=== PATIENT | male | born 1985 | race Caucasian/White ===

== ENCOUNTER 2017-11-06 02:50 | Emergency (ER) | payer SELFPAY ==
[2017-11-06 02:59] VITALS: BP 179/105; PULSE 117; O2SAT 100
--- NOTE | 2017-11-06 03:08 | ERPHSYRPT ---
- History of Present Illness Time Seen by Provider: 11/06/17 03:00 Source: patient Exam Limitations: no limitations Patient Subjective Stated Complaint: pt was pulled over by law enforcement for dui. here for group home clearance Triage Nursing Assessment: pt awake and alert, asnwers questions approp. pt ambulatory with steady gait noted. respirations nonlabored with lungs cta. skin pink warm and dry Physician History: 32 y/o male with history of alcohol abuse brought in by police for DUI. Pt admits to drinking 7-8 beers this day. The officer mentions that his blood alcohol level was 0.3. The patient is steady on his feet and is coherent with no mental status changes. Pt has not fallen. Pt has no complaints and reports that he just wants to go home. Timing/Duration: today Associated Symptoms: denies symptoms Allergies/Adverse Reactions: No Known Drug Allergies Allergy (Verified 11/06/17 02:59) Home Medications: No Reportable Medications [No Reported Medications] 11/06/17 [History] Hx Tetanus, Diphtheria Vaccination/Date Given: Yes Hx Influenza Vaccination/Date Given: No Hx Pneumococcal Vaccination/Date Given: No Immunizations Up to Date: Yes - Review of Systems Constitutional: No Fever, No Chills Eyes: No Symptoms Ears, Nose, & Throat: No Symptoms Respiratory: No Cough, No Dyspnea Cardiac: No Chest Pain, No Edema, No Syncope Abdominal/Gastrointestinal: No Abdominal Pain, No Nausea, No Vomiting, No Diarrhea Genitourinary Symptoms: No Dysuria Musculoskeletal: No Back Pain, No Neck Pain Skin: No Rash Neurological: No Dizziness, No Focal Weakness, No Sensory Changes Psychological: No Symptoms Endocrine: No Symptoms All Other Systems: Reviewed and Negative - Past Medical History Pertinent Past Medical History: Yes GI Medical History: Hepatitis Psycho-Social History: Depression - Past Surgical History Past Surgical History: No - Social History Smoking Status: Current every day smoker Exposure to second hand smoke: Yes Drug Use: none Patient Lives Alone: No - Nursing Vital Signs Nursing Vital Signs: Initial Vital Signs Temperature 98.5 F 11/06/17 02:53 Pulse Rate 117 H 11/06/17 02:53 Respiratory Rate 20 11/06/17 02:53 Blood Pressure 179/105 11/06/17 02:53 O2 Sat by Pulse Oximetry 100 11/06/17 02:53 Pain Scale Pain Intensity 0 - Physical Exam General Appearance: no apparent distress, alert Eye Exam: PERRL/EOMI, eyes nml inspection Ears, Nose, Throat Exam: normal ENT inspection, TMs normal, pharynx normal, moist mucous membranes Neck Exam: normal inspection, non-tender, supple, full range of motion Respiratory Exam: normal breath sounds, lungs clear, No respiratory distress Cardiovascular Exam: regular rate/rhythm, normal heart sounds, normal peripheral pulses, tachycardia Gastrointestinal/Abdomen Exam: soft, normal bowel sounds, No tenderness, No mass Back Exam: normal inspection, normal range of motion, No CVA tenderness, No vertebral tenderness Extremity Exam: normal inspection, normal range of motion, pelvis stable Neurologic Exam: alert, oriented x 3, cooperative, 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 Pt has been walking with no difficulty and his speech is clear. - Departure Time of Disposition: 03:07 Departure Disposition: Halfway/Assisted Clinical Impression: Alcohol intoxication Qualifiers: Complication of substance-induced condition: uncomplicated Qualified Code(s): F10.920 - Alcohol use, unspecified with intoxication, uncomplicated Condition: Stable Critical Care Time: No Instructions: Alcohol Abuse and Alcoholism (DC)
== END 2017-11-06 03:38 | disposition home or self-care (01) ==
LOC: ED 02:50
DX: F10.920 Alcohol use, unspecified with intoxication, uncomplicated (principal); K75.9 Inflammatory liver disease, unspecified; F32.9 Major depressive disorder, single episode, unspecified; Z72.0 Tobacco use
CPT/HCPCS: 36415; 80302; 99281; 99282; G0480